=== PATIENT | female | born 1970 | race Caucasian/White ===

== ENCOUNTER 2016-09-14 18:39 | Emergency (ER) | payer SELFPAY ==
[2016-09-14 18:44] VITALS: BMI 30.2
[2016-09-14] MEDS ORDERED: CATAPRES TAB 0.2 MG PO ONE (19:28)
[2016-09-14] MEDS ORDERED: CATAPRES TAB 0.2 MG ONE (19:29)
--- NOTE | 2016-09-14 19:48 | DR.GENAD ---
HPI - PCP Primary Care Physician: marcy croft in [place] - Complaint/Symptoms Chief Complaint:: patient stated she thinks she pulled a muscle in her right arm cause she is having right arm pain - Source History Provided: Patient - Mode of Arrival Mode of Arrival: Ambulatory - Timing Onset of Chief Complaint: 09/07/16 PMH - PMH Past Medical History: Yes Past Medical History: Arthritis, Diabetes, Dyslipidemia, Hypertension Past Surgical History: Yes Surgical History: , Hysterectomy - Family History History of Family Medical Conditions: Yes Family Medical History: Cancer, [place] - Social History Does patient currently use any type of tobacco product: Yes Have you used tobacco products in the last 12 months: Yes Type of Tobacco Use: Cigarettes How many years tobacco product used: 31 Does any household member use tobacco: Yes Alcohol Use: None Do you use any recreational Drugs:: No Lives With: Family Lives Where: Home - infectious screening In the last 2 months have you had wt loss of >10#?: NO Have you had fever, night sweats or hemotysis?: No Have you traveled outside the country in the last 6 months?: No Isolation: Standard ROS - Review of Systems Eyes: No Symptoms Reported ENTM: No Symptoms Reported Respiratoy: No Symptoms Reported Cardiovascular: No Symptoms Reported Gastrointestinal/Abdominal: No Symptoms Reported Genitourinary: No Symptoms Reported Neurological: No Symptoms Reported Musculoskeletal: No Symptoms Reported Integumentary: No Symptoms Reported Hematologic/Lymphatic: No Symptoms Reported Endocrine: No Symptoms Reported Psychiatric: No Symptoms Reported All Other Systems: Reviewed and Negative PE - Vital Signs Vitals: Temperature 98.5 F Pulse Rate 69 Respiratory Rate 16 Blood Pressure [Left Arm] 185/111 Blood Pressure [Right Arm] 196/97 Blood Pressure 221/102 O2 Sat by Pulse Oximetry 100 - General Limitations: No Limitations General Appearance: Alert, In No Apparent Distress - Head Head Exam: Normal Inspection, Atraumatic - ENT ENT Exam: Normal Exam, Normal Oropharynx External Ear Exam: Normal External Inspection TM/Canal Exam: Bilateral Normal Nose Exam: Normal Nose Exam Mouth Exam: Normal Inspection Throat Exam: Normal Inspection - Neck Neck Exam: Normal Inspection - Chest Chest Inspection: Normal Inspection - Respiratory Respiratory Exam: Normal Lung Sounds Bilat Respiratory Exam: Bilateral Clear to Auscultation - Cardiovascular Cardiovascular Exam: Regular Rate, Normal Rhythm - Abdominal Exam Abdominal Exam: Normal Inspection, Normal Bowel Sounds Abdominal Tenderness: negative: RUQ, RLQ, LUQ, LLQ, Epigastrium, Suprapubic, Diffuse, Mild, Moderate, Severe, Other - Back Back Exam: Normal Inspection - Neurologic Neurological Exam: Alert, Oriented X3, CN II-XII Intact - Psychiatric Psychiatric Exam: Normal Affect - Skin Skin Exam: Warm, Dry, Intact Course - Reevaluation 1st: Unchanged ROR - XRAY XRAY Interpreted by: Radiologist (Elbow: negative) - Diagnosis Discharge Problem: Myalgia and myositis - Discharge Plan Condition: Stable - Follow ups/Referrals Follow ups/Referrals: NFD,None [Primary Care Provider] - 3 days - Instructions
--- NOTE | 2016-09-14 20:07 | RAD ---
HISTORY: Pain Study: Three views right elbow Comparison: None Findings: Normal alignment. No acute fracture or dislocation. The soft tissues are unremarkable. No joint eff usion. IMPRESSION: 1. No acute osseous abnormality. Reported By:
[2016-09-14 21:20] VITALS: BP 178/82
== END 2016-09-14 20:45 | disposition home or self-care (01) ==
LOC: ER 18:58
DX: M79.1 Myalgia (principal); M60.9 Myositis, unspecified
CPT/HCPCS: 73070; 99282

== ENCOUNTER 2018-04-21 17:15 | Observation (INO) ==
[2018-04-21] MEDS ORDERED: TORADOL 60 MG VIAL ONE (17:24)
[2018-04-21] MEDS ORDERED: ASPIRIN PO ONE (22:19)
[2018-04-21] MEDS ORDERED: LASIX IVP ONE ×2 (22:22→22:40)
--- NOTE | 2018-04-21 22:23 | DR.GENAD ---
HPI - PCP Primary Care Physician: MEAGAN VALDOVINOS - Complaint/Symptoms Chief Complaint Doctors Comments: Patient is complaining of her feet swelling and hurting in the bottom for the past two days getting progressively worst. states her legs and feet has been swelling since January 2018 but she has not gone back to her doctor because she did not have the time. She is having pro blems when she lay down. She denies cold, cough, fever or chills. States she went rafting months ago and hit her knee and foot on a rock. She smokes 1/2 pack cigarettes daily but denies alcohol usage. States the pain is 8 of 10. she denies wheezing. states she is a diabetic and has neuropathy and was taking neurontin and they tried her on Lyrica but she could not take the lyrica. States her glucose is usually less than 200. Chief Complaint:: PATIENT STATES THAT SHE HAS HAD SWELLING IN HER HANDS AND FEET SINCE . PATIENT STATES THAT HER FEET ARE SO SWOLLEN TODAY THAT THEY HURT AT THE BASE OF HER TOES. PATIENT ALSO STATES THAT SHE HAS TO SLEEP WITH 4 PILLOWS BEHIND HER AT NIGHT BECAUSE SHE GETS VERY SHORT OF BREATH FROM ALL OF THE FLUID SHE HAS BUILDING UP. Self Treatment fo Chief Complaint: PATIENT STATES THAT SOMETIMES SHE WILL TAKE SOME LASIX AND ELEVATE HER FEET BUT IT DOESN'T SEEM TO HELP - Nurses notes reviewed Nurses Notes Review: Yes - Source History Provided: Patient - Mode of Arrival Mode of Arrival: Ambulatory - Timing Onset of Chief Complaint: 01/08/18 Came on: Gradually - Duration Duration: Intermittent How lon Duration: Days - Location Location: legs and feet - Severity Severity: Moderate - Modifying Factors Worsens:: walking and laying down PMH - PMH Past Medical History: Yes Past Medical History: Diabetes, Hypertension Past Medical History Comment: IBS, DIVERTICULITIS Past Surgical History: Yes Surgical History: , 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 Surgery, Hysterectomy - Family History History of Family Medical Conditions: Yes Family Medical History: Diabetes Mellitus, [place], Coronary Artery Disease, Hypertension - Social History Does patient currently use any type of tobacco product: Yes Have you used tobacco products in the last 12 months: Yes Type of Tobacco Use: None Does any household member use tobacco: No Alcohol Use: None Do you use any recreational Drugs:: No Lives With: Family Lives Where: Home - infectious screening In the last 2 months have you had wt loss of >10#?: NO Have you had fever, night sweats or hemotysis?: No Have you traveled outside the country in the last 6 months?: No Isolation: Standard ROS - Review of Systems Constitutional: No Symptoms Reported Eyes: No Symptoms Reported ENTM: No Symptoms Reported Respiratoy: No Symptoms Reported, Non-Productive Cough, Short of Breath Cardiovascular: No Symptoms Reported, Edema Gastrointestinal/Abdominal: No Symptoms Reported. negative: See HPI, Abdominal Pain, Constipation, Diarrhea, Nausea, Vomiting, Food Intolerance, Other Genitourinary: No Symptoms Reported Neurological: No Symptoms Reported Musculoskeletal: No Symptoms Reported, Left, Foot Integumentary: No Symptoms Reported. negative: See HPI, Change in Color, Change in Hair/Nails, Dryness, Lesions, Lumps, Rash, Itching, Wound, Bruises, Juandice, Other Hematologic/Lymphatic: No Symptoms Reported. negative: See HPI, Anemia, Blood Clots, Easy Bleeding, Easy Bruising, Swollen Glands, Lymphadenopathy, Other Endocrine: No Symptoms Reported Psychiatric: No Symptoms Reported. negative: See HPI, Anxiety, Depression, Hallucinations, Excessive crying, Suicidal, Other PE - General Limitations: No Limitations General Appearance: Alert, In No Apparent Distress - Head Head Exam: Normal Inspection, Atraumatic, Normocephalic - Eyes Eye exam: Normal Appearance, PERRL, EOMI. negative: Scleral Icterus, Conjunctival Injection, Nystagmus, Miosis, Mydrasis, Periorbital Swelling, Periorbital Tenderness, Other - ENT ENT Exam: Normal Exam, Normal Oropharynx, Normal External Ear Exam, Mucous Membranes Moist, TM's Normal Bilaterally External Ear Exam: Normal External Inspection TM/Canal Exam: Bilateral Normal Nose Exam: Normal Nose Exam Mouth Exam: Normal Inspection Throat Exam: Normal Inspection. negative: Tonsillar Erythema, Tonsillomegaly, Tonsillar Exudate, R Peritonsillar Mass, L Peritonsillar Mass, Muffled Voice, Other - Neck Neck Exam: Normal Inspection, Full ROM, Trachea Midline - Chest Chest Inspection: Normal Inspection, Symmetric Chest Wall Rise - Respiratory Respiratory Exam: Normal Lung Sounds Bilat Respiratory Exam: Bilateral Clear to Auscultation - Cardiovascular Cardiovascular Exam: Regular Rate, Normal Rhythm, Normal Heart Sounds, Systolic Murmur - Abdominal Exam Abdominal Exam: Normal Inspection, Normal Bowel Sounds, Soft Abdominal Tenderness: negative: RUQ, RLQ, LUQ, LLQ, Epigastrium, Suprapubic, Diffuse, Mild, Moderate, Severe, Other - Extremities Extremities Exam: Normal Inspection, Full ROM, Tenderness (left label fuser tender toes;no erythema), Normal Capillary Refill, Edema (2-3+) - Back Back Exam: Normal Inspection, Full ROM - Neurologic Neurological Exam: Alert, Oriented X3, CN II-XII Intact, Normal Gait, Reflexes Normal - Psychiatric Psychiatric Exam: Normal Affect, Normal Mood. negative: Depressed, Agitated, Anxious, Flat Affect, Manic, Homicidal Ideation, Suicidal Ideation, Other - Skin Skin Exam: Warm, Dry, Intact, Normal Color - Vital Signs Vitals: Temperature 98.6 F Pulse Rate [Right Brachial] 92 Pulse Rate 96 Respiratory Rate 20 Blood Pressure [Left Arm] 178/82 Blood Pressure [Right Arm] 159/100 Blood Pressure 178/107 O2 Sat by Pulse Oximetry 97 Course - Reevaluation 1st: Improved - Consultation Called: 02:37 Call Returned: 02:37 (Dr. Gastelum to admit) - Education/Counseling Education/Counseling: Patient, Family Educated On: Treatment, Diagnosis, Needs for Follow Up ROR - Labs Reviewed Laboratory Results Reviewed?: Yes (All labs and x-ray results reviewed and dis cussed with patient) Result Diagrams: 04/21/18 22:35 04/21/18 22:35 - XRAY XRAY Interpreted by: Radiologist (CXR: Cardiomegaly and effusions, with reflux contast into hepatic viens. No pumlonary embolus) XRAY Findings: CXR: Cardiomegaly - EKG Rate: 95 [place]: Normal Rhythm: NSR Block: None Hypertrophy: LAE ST: Normal, Nonsp - Labs Reviewed Laboratory: WBC 6.9 X10^3/uL (3.6-10.0) 04/21/18 22:35 RBC 5.85 X10^6/uL (3.5-5.4) H 04/21/18 22:35 Hgb 13.9 g/dL (12.0-16.0) 04/21/18 22:35 Hct 44.0 % (36.0-47.0) 04/21/18 22:35 MCV 75.2 fL (80.0-100.0) L 04/21/18 22:35 MCH 23.7 pg (27.0-34.0) L 04/21/18: MCHC 31.6 g/dL (33.0-35.0) L 04/21/18: RDW 19.1 % (11.6-16.5) H 04/21/18: Plt Count 233 X10^3/uL (150.0-450.0) 04/21/18: Plt Count Comment Adequate (ADEQUATE) 04/21/18: MPV 8.8 fL (7.4-11.0) 04/21/18 22: Neut % (Auto) 56.5 % (42.0-75.0) 04/21/18 22: Lymph % (Auto) 32.4 % (21.0-51.0) 04/21/18: [place] % (Auto) 8.9 % (0.0-13.0) 04/21/18 22: Eos % (Auto) 1.3 % (0.9-2.9) 04/21/18: Baso % (Auto) 0.9 % (0.2-1.0) 04/21/18: Neut # (Auto) 3.9 x10^3/uL (2.2-4.8) 04/21/18 22:35 Lymph # (Auto) 2.2 X10^3/uL (1.3-2.9) 04/21/18 22:35 [place] # (Auto) 0.6 x10^3/uL (0.3-0.8) 04/21/18 22: Eos # (Auto) 0.1 x10^3/uL (0.0-0.2) 04/21/18: Baso # (Auto) 0.1 X10^3/uL (0.0-0.1) 04/21/18: Absolute Nucleated RBC 0.1 /100WBC 04/21/18: Plt Morphology Comment Normal (NORMAL) 04/21/18: RBC Morphology Abnormal (NORMAL) A 04/21/18 22:35 Hypochromasia 1+ A 04/21/18: Anisocytosis Slight A 04/21/18: INR Target Range - 01/12/19 22:35 INR 1.26 (0.8-1.3) 04/21/18 22:35 APTT 34.4 SECONDS (22.9-36.5) 04/21/18 22:35 PTT Comment - 04/21/18 22:35 D-Dimer 1480 ng/mL (0-400) H* 04/21/18 22:35 Sodium 139 mmol/L (136-145) 04/21/18 22:35 Corrected Sodium TNP 04/21/18 22:35 Potassium 3.5 mmol/L (3.5-5.1) 04/21/18 22:35 Chloride 100 mmol/L (98-107) 04/21/18 22:35 Carbon Dioxide 28.6 mmol/L (21-32) 04/21/18 22:35 BUN 17 mg/dL (7-18) 04/21/18 22:35 Creatinine 1.24 mg/dL (0.55-1.02) H 04/21/18 22:35 Est GFR (MDRD) Af Amer 59 (>60) 04/21/18 22:35 Est GFR (MDRD) Non-Af 49 (>60) L 04/21/18 22:35 Glucose 90 mg/dL (65-99) 04/21/18 22:35 Calcium 9.4 mg/dL (8.5-10.1) 04/21/18 22:35 Corrected Calcium TNP 04/21/18 22:35 Magnesium 1.8 mg/dL (1.7-2.9) 04/21/18 22:35 Total Bilirubin 2.00 mg/dL (0.2-1.0) H 04/21/18 22:35 AST 41 Units/L (15-37) H 04/21/18 22:35 ALT 19 Units/L (12-78) 04/21/18 22:35 Alkaline Phosphatase 89 Units/L (46-116) 04/21/18 22:35 Creatine Kinase 116 Units/L (26-192) 04/21/18 22:35 CK-MB (CK-2) 2.5 ng/mL (0-4.0) 04/21/18 22:35 CK/CKMB % Calc 2.2 % (<4) 04/21/18 22:35 Troponin I 0.05 ng/mL (0-1.5) 04/21/18 22:35 B-Natriuretic Peptide 2380 pg/mL (0-79) H* 04/21/18 22:35 Total Protein 9.1 g/dL (6.4-8.2) H 04/21/18 22:35 Albumin 3.4 g/dL (3.4-5.0) 04/21/18 22:35 Globulin 5.7 g/dL (2.5-4.5) H 04/21/18 22:35 Albumin/Globulin Ratio 0.6 Ratio (1.1-2.1) L 04/21/18 22:35 - Diagnosis Discharge Problem: Accelerated hypertension, Cardiomegaly Congestive heart failure, acute Qualifiers: Heart failure type: unspecified Qualified Code(s): I50.9 - Heart failure, unspecified Chronic kidney disease (CKD) Qualifiers: Chronic kidney disease stage: stage 3 (moderate) Qualified Code(s): N18.3 - Chronic kidney disease, stage 3 (moderate) - Discharge Plan Disposition: 09 ADMITTED INPATIENT Condition: Stable
[2018-04-21] MEDS ORDERED: ASPIRIN ONE (22:40)
[2018-04-21 22:44] LABS: BASOPHILS # (AUTO) 0.1 X10^3/uL (0.0-0.1); BASOPHILS % (AUTO) 0.9 % (0.2-1.0); EOSINOPHILS # (AUTO) 0.1 x10^3/uL (0.0-0.2); EOSINOPHILS % (AUTO) 1.3 % (0.9-2.9); HEMOGLOBIN 13.9 g/dL (12.0-16.0); LYMPHOCYTES # (AUTO) 2.2 X10^3/uL (1.3-2.9); LYMPHOCYTES % (AUTO) 32.4 % (21.0-51.0); MEAN CORPUSCULAR HEMOGLOBIN 23.7 pg (27.0-34.0); MEAN CORPUSCULAR HGB CONC 31.6 g/dL (33.0-35.0); MEAN CORPUSCULAR VOLUME 75.2 fL (80.0-100.0); MEAN PLATELET VOLUME 8.8 fL (7.4-11.0); MONOCYTES # (AUTO) 0.6 x10^3/uL (0.3-0.8); MONOCYTES % (AUTO) 8.9 % (0.0-13.0); NEUTROPHILS # (AUTO) 3.9 x10^3/uL (2.2-4.8); NEUTROPHILS % (AUTO) 56.5 % (42.0-75.0); PLATELET COUNT 233 X10^3/uL (150.0-450.0); RED BLOOD COUNT 5.85 X10^6/uL (3.5-5.4); RED CELL DISTRIBUTION WIDTH 19.1 % (11.6-16.5); WHITE BLOOD COUNT 6.9 X10^3/uL (3.6-10.0)
--- NOTE | 2018-04-21 22:57 | RAD ---
Exam: Portable chest History: 48-year-old female with chest pain. Cough. Comparison: Previous chest radiograph from 12/09/2015. Findings: Generalized cardiomegaly is seen. However no significant vascular congestion. Lungs are clear with no infiltrate or significant effusion on either side. Bony thorax is unremarkable as well. Impression: Generalized cardiomegaly. However no acute superimposed abnormality is seen on this exam Reported By:
[2018-04-21 23:00] LABS: BLOOD UREA NITROGEN 17 mg/dL (7-18); CALCIUM 9.4 mg/dL (8.5-10.1); CARBON DIOXIDE 28.6 mmol/L (21-32); CHLORIDE 100 mmol/L (98-107); CREATININE 1.24 mg/dL (0.55-1.02); SODIUM 139 mmol/L (136-145); TROPONIN I 0.05 ng/mL (0-1.5); eGFR NON BLACK RACES 49 (>60)
[2018-04-21 23:04] LABS: ALANINE AMINOTRANSFERASE 19 Units/L (12-78); ALBUMIN 3.4 g/dL (3.4-5.0); ALKALINE PHOSPHATASE 89 Units/L (46-116); ASPARTATE AMINO TRANSFERASE 41 Units/L (15-37); CKMB % 2.2 % (<4); CREATINE KINASE 116 Units/L (26-192); CREATINE KINASE MB 2.5 ng/mL (0-4.0); MAGNESIUM 1.8 mg/dL (1.7-2.9); TOTAL PROTEIN 9.1 g/dL (6.4-8.2)
[2018-04-21 23:14] LABS: ANISOCYTOSIS SLIGHT; HYPOCHROMASIA 1+; PLATELET MORPHOLOGY COMMENT NORMAL (NORMAL)
--- NOTE | 2018-04-21 23:19 | RAD ---
Exam: Left foot three views History: 48-year-old female with left foot pain Comparison: None Findings: Three views left foot demonstrate no evidence of acute bony abnormality. Small bone spurs are seen along the posterior and plantar aspect of the calcaneus. Impression: No acute bony abnormality is seen on this exam Reported By:
[2018-04-21] MEDS ORDERED: NS 100 ML IV 100 ML IV ONE (23:50)
[2018-04-22] MEDS ORDERED: LASIX IVP ONE ×2 (00:24→03:33)
[2018-04-22] MEDS ORDERED: LASIX ONE (00:24)
[2018-04-22] MEDS ORDERED: LASIX IVP STA (00:24)
[2018-04-22] MEDS ORDERED: CATAPRES TAB 0.2 MG ONE (01:08)
[2018-04-22] MEDS ORDERED: CATAPRES TAB 0.2 MG PO ONE (01:08)
--- NOTE | 2018-04-22 01:32 | CT ---
CT angiogram chest with contrast Indication: Elevated D-dimer Technique: Helical images through the chest after IV contrast. Coronal and sagittal reformats provided. MIP images provided. Findings: Limited images through the upper abdomen shows reflux of contrast into the hepatic veins and perihepatic ascites. Vascular calcifications noted. Review of bone windows shows no destructive osseous lesion. Chest: There is marked cardiomegaly. Aortic arch calcifications noted. Pulmonary artery bolus timing is adequate. No large central or segmental pulmonary artery filling defect is identified. There is trace left effusion and large right effusion. Mild increased interstitial markings are noted. There is no pneumothorax or consolidation. Impression: 1. Cardiomegaly and effusions, with reflux of contrast into the hepatic veins. Cardiac dysfunction and CHF is possible. 2. No pulmonary embolus identified. Reported By:
[2018-04-22] MEDS ORDERED: ZESTRIL TAB 20 MG PO STA (02:34)
[2018-04-22] MEDS ORDERED: ATIVAN TAB 1 MG PO PRN (02:39)
[2018-04-22] MEDS ORDERED: HumuLIN R SC PRN (02:58)
[2018-04-22 03:21] LABS: CHOL/HDL RATIO 5.2 (0.0-5.0)
[2018-04-22] MEDS ORDERED: ZESTRIL TAB 20 MG ONE (03:23)
[2018-04-22 03:29] LABS: CKMB % 1.8 % (<4); CREATINE KINASE MB 2.2 ng/mL (0-4.0); TROPONIN I 0.05 ng/mL (0-1.5)
[2018-04-22] MEDS ORDERED: COREG TAB 3.125 MG ONE (03:33)
[2018-04-22] MEDS: COREG TAB 3.125 MG PO SCH ×3 (03:36→22:33)
[2018-04-22] MEDS: LASIX IVP SCH ×3 (03:37→22:33)
[2018-04-22 06:00] VITALS: BMI 27.4
[2018-04-22 06:04] LABS: BASOPHILS # (AUTO) 0.1 X10^3/uL (0.0-0.1); BASOPHILS % (AUTO) 1.4 % (0.2-1.0); EOSINOPHILS # (AUTO) 0.2 x10^3/uL (0.0-0.2); EOSINOPHILS % (AUTO) 2.5 % (0.9-2.9); HEMATOCRIT 41.7 % (36.0-47.0); HEMOGLOBIN 13.4 g/dL (12.0-16.0); LYMPHOCYTES # (AUTO) 2.2 X10^3/uL (1.3-2.9); LYMPHOCYTES % (AUTO) 35.1 % (21.0-51.0); MEAN CORPUSCULAR HEMOGLOBIN 23.7 pg (27.0-34.0); MEAN CORPUSCULAR HGB CONC 32.2 g/dL (33.0-35.0); MEAN CORPUSCULAR VOLUME 73.7 fL (80.0-100.0); MONOCYTES # (AUTO) 0.4 x10^3/uL (0.3-0.8); MONOCYTES % (AUTO) 5.8 % (0.0-13.0); NEUTROPHILS # (AUTO) 3.5 x10^3/uL (2.2-4.8); NEUTROPHILS % (AUTO) 55.2 % (42.0-75.0); PLATELET COUNT 216 X10^3/uL (150.0-450.0); RED BLOOD COUNT 5.65 X10^6/uL (3.5-5.4); RED CELL DISTRIBUTION WIDTH 19.2 % (11.6-16.5); WHITE BLOOD COUNT 6.3 X10^3/uL (3.6-10.0)
[2018-04-22 06:25] LABS: ALANINE AMINOTRANSFERASE 16 Units/L (12-78); ALBUMIN 3.2 g/dL (3.4-5.0); ALKALINE PHOSPHATASE 83 Units/L (46-116); ASPARTATE AMINO TRANSFERASE 40 Units/L (15-37); BLOOD UREA NITROGEN 16 mg/dL (7-18); CALCIUM 9.3 mg/dL (8.5-10.1); CARBON DIOXIDE 29.2 mmol/L (21-32); CHLORIDE 98 mmol/L (98-107); COR CA(FOR HYPOALB) 9.9 mg/dL (8.5-10.1); COR NA(FOR HYPERGLY) 140 mmol/L (136-145); CREATININE 1.19 mg/dL (0.55-1.02); SODIUM 138 mmol/L (136-145); TOTAL PROTEIN 8.5 g/dL (6.4-8.2); eGFR NON BLACK RACES 51 (>60)
[2018-04-22 06:33] LABS: HYPOCHROMASIA 1+; PLATELET MORPHOLOGY COMMENT NORMAL (NORMAL); TARGET CELLS SLIGHT
[2018-04-22] MEDS ORDERED: POTASSIUM CHL 40 MEQ/NS 0.45% 500 ML IV PRN (06:33)
[2018-04-22] MEDS ORDERED: K-RIDER 10 MEQ/NS 100 ML 10 MEQ/100 ML BAG IV PRN (06:33)
[2018-04-22] MEDS ORDERED: K-DUR TAB 20 MEQ PO PRN (06:33)
[2018-04-22] MEDS ORDERED: MICRO K EXTEN CAP 10 MEQ PO PRN (06:33)
[2018-04-22] MEDS ORDERED: POTASSIUM CHL 60 MEQ/NS 0.45% 500 ML IV PRN (06:33)
[2018-04-22 06:35] LABS: ANISOCYTOSIS SLIGHT
[2018-04-22] MEDS ORDERED: ZAROXOYLN PO SCH (09:00)
[2018-04-22] MEDS: LOVENOX INJ 40 MG SYR SC SCH (09:04)
[2018-04-22] MEDS: PROTONIX INJ 40 MG VIAL IVP SCH (09:05)
[2018-04-22] MEDS: ZESTRIL TAB 10 MG PO SCH (09:05)
[2018-04-22 10:15] LABS: BILIRUBIN,URINE NEGATIVE (NEGATIVE); BLOOD/HEMOGLOBIN,URINE NEGATIVE (NEGATIVE); GLUCOSE, URINE NEGATIVE (NEGATIVE); KETONES,URINE NEGATIVE (NEGATIVE); LEUKOCYTE ESTERASE ,URINE NEGATIVE (NEGATIVE); NITRITES,URINE NEGATIVE (NEGATIVE); PROTEIN,URINE NEGATIVE (NEGATIVE); UROBILINOGEN,URINE NORMAL (NORMAL)
[2018-04-22 10:37] LABS: CKMB % 1.8 % (<4); CREATINE KINASE MB 1.8 ng/mL (0-4.0); TROPONIN I 0.04 ng/mL (0-1.5)
[2018-04-22 11:01] LABS: APPEARANCE,URINE CLEAR (CLEAR); COLOR,URINE YELLOW (YELLOW)
[2018-04-22] MEDS ORDERED: TYLENOL 325 MG TAB PO PRN (11:30)
[2018-04-22] MEDS: POTASSIUM CHLORIDE LIQ 20 MEQ UDC PO PRN (12:27)
[2018-04-22] MEDS: ALDACTONE TAB 25 MG PO SCH (12:29)
[2018-04-22] MEDS: MOTRIN TAB 600 MG PO PRN ×2 (13:39→22:37)
[2018-04-22 15:56] LABS: CKMB % 1.9 % (<4); CREATINE KINASE MB 1.7 ng/mL (0-4.0); TROPONIN I 0.03 ng/mL (0-1.5)
[2018-04-22] MEDS: KLOR-CON PO PRN (22:35)
[2018-04-23 06:16] LABS: BASOPHILS # (AUTO) 0.1 X10^3/uL (0.0-0.1); BASOPHILS % (AUTO) 0.8 % (0.2-1.0); EOSINOPHILS # (AUTO) 0.2 x10^3/uL (0.0-0.2); HEMATOCRIT 41.2 % (36.0-47.0); HEMOGLOBIN 13.4 g/dL (12.0-16.0); LYMPHOCYTES % (AUTO) 28.8 % (21.0-51.0); MEAN CORPUSCULAR HEMOGLOBIN 23.8 pg (27.0-34.0); MEAN CORPUSCULAR HGB CONC 32.4 g/dL (33.0-35.0); MEAN CORPUSCULAR VOLUME 73.4 fL (80.0-100.0); MEAN PLATELET VOLUME 8.8 fL (7.4-11.0); MONOCYTES # (AUTO) 0.6 x10^3/uL (0.3-0.8); MONOCYTES % (AUTO) 8.8 % (0.0-13.0); NEUTROPHILS % (AUTO) 58.6 % (42.0-75.0); PLATELET COUNT 236 X10^3/uL (150.0-450.0); RED BLOOD COUNT 5.61 X10^6/uL (3.5-5.4); RED CELL DISTRIBUTION WIDTH 19.5 % (11.6-16.5); WHITE BLOOD COUNT 6.8 X10^3/uL (3.6-10.0)
[2018-04-23 06:26] LABS: ALBUMIN 2.8 g/dL (3.4-5.0); CALCIUM 9.2 mg/dL (8.5-10.1); COR CA(FOR HYPOALB) 10.2 mg/dL (8.5-10.1); CREATININE 1.57 mg/dL (0.55-1.02); MAGNESIUM 1.4 mg/dL (1.7-2.9); TOTAL PROTEIN 7.8 g/dL (6.4-8.2)
[2018-04-23] MEDS: KLOR-CON PO PRN (06:39)
[2018-04-23 06:55] LABS: HYPOCHROMASIA 1+; PLATELET MORPHOLOGY COMMENT NORMAL (NORMAL)
--- NOTE | 2018-04-23 08:23 | DR.H&P ---
H&P - History & Physical for Day of: H&P Date: 04/22/18 - Chief Complaint Chief Complaint: SWELLING, SOB - History of Present Illness History of Present Illness: IS A 48 YEAR OLD PATIENT OF BRANDAN ARELLANO. SHE PRESENTED TO THE EMERGENCY ROOM WITH COMPLAINTS OF SWELLING IN HANDS AND FEET FOR SEVERAL MONTHS. SHE COMPLAINS OF PAIN AT THE BASE OF HER FEET. SHE ALSO REPORTS SHORTNESS OF BREATH AND REPORTS HAVING TO SLEEP ON FOUR PILLOWS AT NIGHT DUE TO THE SHORTNESS OF BREATH. SHE STATES THAT SHE DOES TAKE LASIX SOMETIMES FOR THE SWELLING, BUT DOESNT NOTICE MUCH IMPROVEMENT. SHE REPORTS A HISTORY OF DIABETES AND DIABETIC NEUROPATHY. ON ARRIVAL, VITALS WERE 98.6-96-20-98%-178/107. LABS WERE OBTAINED. ABNORMAL LAB VALUES INCLUDE THE FOLLOWING: RBC 5.85, D-DIMER 1480, CREATININE 1.24, TOTAL BILI 2.00, AST 41, BNP 2380, TOTAL PROTEIN 9.1, GLOBULIN 5.7. CARDIAC ENZYMES WITHIN NORMAL LIMITS. CHEST XRAY WAS OBTAINED AND REVEALED GENERALIZED CARDIOMEGALY. EKG OBTAINED AND REVEALED SINUS RHYTHM WITH HR 95. FOOT XRAY REVEALED SMALL BONE SPURS ALONG THE POSTERIOR AND PLANTAR ASPECT OF THE CALCANEUS. A CHEST CT WAS OBTAINED AND REVEALED: Cardiomegaly and effusions, with reflux of contrast into the hepatic veins. Cardiac dysfunction and CHF is possible. No pulmonary embolus identified. SHE WAS GIVEN CATAPRES 0.2MG PO X 1 AND LASIX 20MG IVP X 1 IN THE ER WITH ONLY SLIGHT IMPROVEMENT IN SYMPTOMS. BLOOD PRESSURE NOTED TO DECREASE TO 171/91. SHE WAS ADMITTED FOR FURTHER EVALUATION AND TREATMENT OF CONGESTIVE HEART FAILURE AND ACCELERATED HYPERTENSION. SHE WAS STARTED ON ALDACTONE 25MG PO DAILY, LASIX 40MG IV BID, COREG 3.125MG PO BID, AND HOME MEDICATIONS WERE RESUMED. TODAY, WE WILL OBTAIN AN ECHO. OTHERWISE, WE PLAN TO FOLLOW UP WITH AM LABS AND CONTINUE TO MONITOR. - Past Medical History Past Medical History: Diabetes, Hypertension Additional Medical History: Diverticulitis, diabetic neuropathy - Past Surgical History Surgical History: , SPINNER IRON Surgery, Hysterectomy - Family History Family Medical History: Diabetes Mellitus, [place], Coronary Artery Disease, Hypertension - Social History Does patient currently use any type of tobacco product: Yes Have you used tobacco products in the last 12 months: Yes Type of Tobacco Use: None How many years tobacco product used: 34 Does any household member use tobacco: No Alcohol Use: None Drug Use: None - Medications Home Medications: pregabalin [From Lyrica] Allergy (Verified 04/21/18 23:22) CONTINUE taking the following medications hydrochlorothiazide 12.5 mg PO QDAY 04/22/18 [History] insulin regular human [Humulin R Regular U-100 Insuln] 1 sliding scale dose S UBCUT UD 04/22/18 [History] liraglutide [Victoza 2-Guilherme] 0.6 mg SUBCUT QDAY 04/22/18 [History] lisinopril 20 mg PO QDAY 04/22/18 [History] - Review of Systems Constitutional: Weakness Eyes: No Symptoms Reported ENT: No Symptoms Reported Respiratory: See HPI, Shortness of Breath, SOB with Excertion. denies: Cough, Sputum, Wheezing Cardiovascular: Edema Gastrointestinal: No Symptoms Reported Genitourinary: No Symptoms Reported Musculoskeletal: Foot Pain Skin: No Symptoms Reported Neurological: Weakness - Physical Exam Vital Signs: Temperature 97.5 F Pulse Rate [Right Brachial] 59 Pulse Rate 96 Respiratory Rate 20 Blood Pressure [Left Arm] 178/82 Blood Pressure [Right Arm] 109/69 Blood Pressure 178/107 O2 Sat by Pulse Oximetry 95 Oriented: Normal Eyes: Normal Ear: Normal Nose: Normal Throat: Normal Respiratory: Diminished Throughout Cardiovascular: Edema (generalized 2+ pitting edema ) : Normal Auscultation: Bowel Sounds: Normal Palpation: Normal Tenderness: Normal Skin: Normal Musculoskeletal: Normal Psychiatric: Normal Mood Description: Calm Affect: Normal Speech Pattern: Clear - Assessment/Plan (1) Congestive heart failure, acute Qualifiers: Heart failure type: unspecified Qualified Code(s): I50.9 - Heart failure, unspecified Status: Acute Plan: lasix 40mg po bid, coreg 3.125mg po bid, aldactone 25mg po daily, continue to monitor (2) Accelerated hypertension Status: Acute Plan: coreg 3.125mg po bid, lisinopril 20mg po daily, continue to monitor - Allergies Allergies/Adverse Reactions: Allergies Allergy/AdvReac Type Severity Reaction Status Date / Time pregabalin [From Lyrica] Allergy Verified 04/21/18 23:22
[2018-04-23] MEDS: LOVENOX INJ 40 MG SYR SC SCH (10:17)
[2018-04-23] MEDS: ALDACTONE TAB 25 MG PO SCH (10:17)
[2018-04-23] MEDS: ZESTRIL TAB 10 MG PO SCH (10:17)
[2018-04-23] MEDS: COREG TAB 3.125 MG PO SCH ×2 (10:18→20:27)
[2018-04-23] MEDS: LASIX IVP SCH ×2 (10:45→20:28)
[2018-04-23] MEDS: PROTONIX INJ 40 MG VIAL IVP SCH (10:46)
[2018-04-23 10:49] LABS: IRON 34 ug/dL (50-175)
[2018-04-23] MEDS: TYLENOL 500 MG TAB EXTRA STRENGTH PO PRN ×2 (13:08→20:28)
[2018-04-23] MEDS: POTASSIUM CHLORIDE LIQ 20 MEQ UDC PO PRN (22:56)
[2018-04-24 05:17] LABS: BASOPHILS # (AUTO) 0.1 X10^3/uL (0.0-0.1); BASOPHILS % (AUTO) 0.8 % (0.2-1.0); EOSINOPHILS # (AUTO) 0.3 x10^3/uL (0.0-0.2); HEMATOCRIT 47.4 % (36.0-47.0); HEMOGLOBIN 15.1 g/dL (12.0-16.0); LYMPHOCYTES # (AUTO) 2.1 X10^3/uL (1.3-2.9); LYMPHOCYTES % (AUTO) 29.3 % (21.0-51.0); MEAN CORPUSCULAR HEMOGLOBIN 23.6 pg (27.0-34.0); MEAN CORPUSCULAR HGB CONC 31.7 g/dL (33.0-35.0); MEAN CORPUSCULAR VOLUME 74.2 fL (80.0-100.0); MEAN PLATELET VOLUME 8.1 fL (7.4-11.0); MONOCYTES # (AUTO) 0.7 x10^3/uL (0.3-0.8); MONOCYTES % (AUTO) 9.9 % (0.0-13.0); PLATELET COUNT 303 X10^3/uL (150.0-450.0); RED BLOOD COUNT 6.39 X10^6/uL (3.5-5.4); RED CELL DISTRIBUTION WIDTH 19.4 % (11.6-16.5); WHITE BLOOD COUNT 7.1 X10^3/uL (3.6-10.0)
[2018-04-24 05:26] LABS: ALANINE AMINOTRANSFERASE 18 Units/L (12-78); ALBUMIN 3.1 g/dL (3.4-5.0); ALKALINE PHOSPHATASE 86 Units/L (46-116); ASPARTATE AMINO TRANSFERASE 38 Units/L (15-37); BLOOD UREA NITROGEN 22 mg/dL (7-18); CALCIUM 9.2 mg/dL (8.5-10.1); CARBON DIOXIDE 33.7 mmol/L (21-32); CHLORIDE 95 mmol/L (98-107); COR CA(FOR HYPOALB) 9.9 mg/dL (8.5-10.1); CREATININE 1.59 mg/dL (0.55-1.02); SODIUM 137 mmol/L (136-145); TOTAL PROTEIN 8.8 g/dL (6.4-8.2); eGFR NON BLACK RACES 37 (>60)
[2018-04-24 05:36] LABS: PLATELET MORPHOLOGY COMMENT NORMAL (NORMAL)
[2018-04-24 05:37] LABS: ANISOCYTOSIS SLIGHT; HYPOCHROMASIA 1+
[2018-04-24] MEDS ORDERED: NS 250 ML IV 250 ML IV ONE (05:45)
[2018-04-24] MEDS: MAGNESIUM SULFATE 1 GRAM/100 mL PREMIX 1 GM/100 ML BAG IV PRN ×3 (05:55→08:07)
[2018-04-24] MEDS: POTASSIUM CHLORIDE LIQ 20 MEQ UDC PO PRN (05:55)
[2018-04-24] MEDS: ALDACTONE TAB 25 MG PO SCH (08:06)
[2018-04-24] MEDS: LASIX IVP SCH (08:06)
[2018-04-24] MEDS: LOVENOX INJ 40 MG SYR SC SCH (08:06)
[2018-04-24] MEDS: COREG TAB 3.125 MG PO SCH ×4 (08:06→20:35)
[2018-04-24] MEDS: ZESTRIL TAB 10 MG PO SCH (08:07)
[2018-04-24] MEDS: PROTONIX INJ 40 MG VIAL IVP SCH (08:07)
[2018-04-24] MEDS: LASIX PO SCH (08:56)
[2018-04-24] MEDS: K-DUR TAB 20 MEQ PO SCH ×2 (08:56→20:34)
[2018-04-24] MEDS: ZESTRIL TAB 5 MG PO SCH (08:57)
[2018-04-24] MEDS ORDERED: NS 100 ML IV 100 ML with VENOFER 100 MG IV NR ×2 (09:00)
[2018-04-24] MEDS: TYLENOL 500 MG TAB EXTRA STRENGTH PO PRN (16:15)
[2018-04-24] MEDS ORDERED: COLACE CAP 100 MG PO PRN (19:49)
[2018-04-24] MEDS ORDERED: MILK OF MAGNESIA PO PRN (19:49)
[2018-04-25 05:28] LABS: BASOPHILS # (AUTO) 0.1 X10^3/uL (0.0-0.1); BASOPHILS % (AUTO) 1.5 % (0.2-1.0); EOSINOPHILS # (AUTO) 0.4 x10^3/uL (0.0-0.2); HEMATOCRIT 49.2 % (36.0-47.0); HEMOGLOBIN 15.9 g/dL (12.0-16.0); LYMPHOCYTES # (AUTO) 2.2 X10^3/uL (1.3-2.9); LYMPHOCYTES % (AUTO) 32.2 % (21.0-51.0); MEAN CORPUSCULAR HGB CONC 32.3 g/dL (33.0-35.0); MEAN CORPUSCULAR VOLUME 74.4 fL (80.0-100.0); MONOCYTES # (AUTO) 0.8 x10^3/uL (0.3-0.8); MONOCYTES % (AUTO) 11.5 % (0.0-13.0); NEUTROPHILS # (AUTO) 3.5 x10^3/uL (2.2-4.8); NEUTROPHILS % (AUTO) 49.8 % (42.0-75.0); PLATELET COUNT 279 X10^3/uL (150.0-450.0); RED BLOOD COUNT 6.61 X10^6/uL (3.5-5.4); RED CELL DISTRIBUTION WIDTH 19.7 % (11.6-16.5)
[2018-04-25 05:36] LABS: ALBUMIN 3.1 g/dL (3.4-5.0); CALCIUM 9.3 mg/dL (8.5-10.1); CARBON DIOXIDE 31.7 mmol/L (21-32); CREATININE 1.68 mg/dL (0.55-1.02); MAGNESIUM 2.1 mg/dL (1.7-2.9)
[2018-04-25 06:00] LABS: HYPOCHROMASIA 1+; PLATELET MORPHOLOGY COMMENT NORMAL (NORMAL)
[2018-04-25 06:01] LABS: MICROCYTOSIS SLIGHT
[2018-04-25] MEDS: LASIX PO SCH (08:00)
[2018-04-25] MEDS: K-DUR TAB 20 MEQ PO SCH (09:08)
[2018-04-25] MEDS: ZESTRIL TAB 5 MG PO SCH (09:08)
[2018-04-25] MEDS: COREG TAB 3.125 MG PO SCH (09:08)
[2018-04-25] MEDS: LOVENOX INJ 40 MG SYR SC SCH (09:08)
[2018-04-25] MEDS: PROTONIX INJ 40 MG VIAL IVP SCH (09:08)
[2018-04-25 09:13] VITALS: BP 121/64
== END 2018-04-25 11:25 | disposition home or self-care (01) ==
LOC: MED/SURG 17:18 → ER 17:18 → MED/SURG 04-22 03:16
PROVIDERS: ADMIT Internal Medicine; ATTEND Obstetrics & Gynecology Obstetrics
DX: R60.0 Localized edema; I51.7 Cardiomegaly; E11.21 Type 2 diabetes mellitus with diabetic nephropathy; N18.3 Chronic kidney disease, stage 3 (moderate); I50.9 Heart failure, unspecified; R06.02 Shortness of breath
CPT/HCPCS: 36415; 71010; 71045; 71275; 73630; 80053; 80061; 80307; 81003; 82550; 82553; 82607; 82728; 82746; 83540; 83735; 83880; 84132; 84425; 84466; 84484; 85025; 85378; 85610; 85730; 93005; 93306; 94760; 96365; 96374; 96375; 99284; A4216; A4222; C9113; G0378; G0434; J1650; J1756; J1815; J1885; J1940; J3475; J7050